=== PATIENT | female | born 1960 | race Caucasian/White ===

== ENCOUNTER → 2016-12-16 | Outpatient (CLI) | payer OTHER ==
--- NOTE | 2016-12-16 15:09 | RAD ---
Right knee with patella, 4 views, 12/16/2016: History: Knee pain, twisting injury There is narrowing of the medial compartment of the knee joint with mild marginal spurring. There is minimal spurring at the patellofemoral articulation. No acute fracture or dislocation is identified. There is mild subcutaneous edema anteriorly. No definite joint effusion is seen. IMPRESSION: 1. Moderate degenerative change. 2. No acute bony abnormality is detected.
== END | disposition home or self-care (01) ==
LOC: DXRADRC 14:36
PROVIDERS: ATTEND Orthopaedic Surgery Sports Medicine
DX: M17.11 Unilateral primary osteoarthritis, right knee (principal)
CPT/HCPCS: 73562

== ENCOUNTER 2019-09-30 16:36 | Emergency (ER) | payer OTHER ==
[~2019-09-30] VITALS: Ht 165.1 cm; Wt 101.3 kg
--- NOTE | 2019-09-30 16:54 | PHYS DOC ---
Adult General Chief Complaint Chief Complaint: COUGH HPI HPI Patient is a 59-year-old female who presents with complaint of chest discomfort and mild cough for the last 2-3 days. Patient states that chest discomfort has been worsened with exertion. She denies any nausea, vomiting or diaphoresis. She states the cough has been productive of scant amount of clear sputum. Patient denies any fever.[] (ESTEBAN PRYOR Jr. DO) HPI Pt. follows with [facility] Hammond. (HALEY TSE MD) Review of Systems Review of Systems Constitutional: Denies fever or chills [] Respiratory: Admits to cough without shortness of breath [] Cardiovascular: No additional information not addressed in HPI [] GI: Denies abdominal pain, nausea, vomiting, bloody stools or diarrhea [] Musculoskeletal: Admits to right sided mid thoracic pain [] Integument: Denies rash or skin lesions [] Neurologic: Denies headache, focal weakness or sensory changes [] All other systems were reviewed and found to be within normal limits, except as documented in this note. (ESTEBAN PRYOR Jr. DO) Physical Exam Physical Exam Constitutional: Well developed, well nourished, no acute distress, non-toxic appearance. [] HENT: Normocephalic, atraumatic, bilateral external ears normal, oropharynx m oist, no oral exudates, nose normal. [] Eyes: PERRLA, EOMI, conjunctiva normal, no discharge. [] Neck: Normal range of motion, no tenderness, supple, no stridor. [] Cardiovascular:Heart rate regular rhythm, no murmur [] Lungs & Thorax: Bilateral breath sounds clear to auscultation [] Abdomen: Bowel sounds normal, soft, no tenderness. [] Skin: Warm, dry, no erythema, no rash. [] Extremities: No tenderness, no cyanosis, no clubbing, ROM intact, no edema. [] Neurologic: Alert and oriented X 3, normal motor function, normal sensory function, no focal deficits noted. [] (ESTEBAN PRYOR Jr. DO) EKG EKG EKG demonstrates normal sinus rhythm with no significant abnormalities.[] (ESTEBAN PRYOR Jr. DO) Radiology/Procedures Radiology/Procedures [] Impressions: PROCEDURE: PORTABLE CHEST 1V INDICATION: Chest pain COMPARISON: None. FINDINGS: Single view of chest obtained. No focal airspace consolidation. Cardiomediastinal contour unremarkable. No acute osseous abnormality. IMPRESSION: * No focal airspace consolidation or edema. Electronically signed by: Kj Shahid MD (09/30/2019 5:06 PM) [id number] (ESTEBAN PRYOR Jr., DO) Radiology/Procedures [address] [address] IMAGING REPORT Signed PATIENT: NI RODASACCOUNT: [id number] : 1960 LOCATION: ER AGE: 59 SEX: F EXAM STATUS: REG ER ORD. PHYSICIAN: ESTEBAN PRYOR Jr., DO REASON: Chest pain PROCEDURE: PORTABLE CHEST 1V INDICATION: Chest pain COMPARISON: None. FINDINGS: Single view of chest obtained. No focal airspace consolidation. Cardiomediastinal contour unremarkable. No acute osseous abnormality. IMPRESSION: * No focal airspace consolidation or edema. Electronically signed by: Kj Shahid MD (09/30/2019 5:06 PM) [id number] DICTATED AND SIGNED BY: KJ SHAHID MD DATE: 09/30/191705 CC: ESTEBAN PRYOR Jr. DO; HUMPHREY HAMMOND [address] [address] IMAGING REPORT Signed PATIENT: NI RODASACCOUNT: [id number] : 1960 LOCATION: ER AGE: 59 SEX: F EXAM STATUS: REG ER ORD. PHYSICIAN: ESTEBAN PRYOR Jr., DO REASON: Chest pain PROCEDURE: PORTABLE CHEST 1V INDICATION: Chest pain COMPARISON: None. FINDINGS: Single view of chest obtained. No focal airspace consolidation. Cardiomediastinal contour unremarkable. No acute osseous abnormality. IMPRESSION: * No focal airspace consolidation or edema. Electronically signed by: Kj Shahid MD (09/30/2019 5:06 PM) [id number] DICTATED AND SIGNED BY: KJ SHAHID MD DATE: 09/30/191705 CC: ESTEBAN PRYOR Jr. DO; HUMPHREY HAMMOND [address] [address] IMAGING REPORT Signed PATIENT: NI RODASACCOUNT: [id number] : 1960 LOCATION: ER AGE: 59 SEX: F EXAM STATUS: REG ER ORD. PHYSICIAN: ESTEBAN PRYOR Jr., DO REASON: Chest pain PROCEDURE: PORTABLE CHEST 1V INDICATION: Chest pain COMPARISON: None. FINDINGS: Single view of chest obtained. No focal airspace consolidation. Cardiomediastinal contour unremarkable. No acute osseous abnormality. IMPRESSION: * No focal airspace consolidation or edema. Electronically signed by: Kj Shahid MD (09/30/2019 5:06 PM) [id number] DICTATED AND SIGNED BY: KJ SHAHID MD DATE: 09/30/191705 CC: ESTEBAN PRYOR Jr. DO; HUMPHREY HAMMOND [address] [address] IMAGING REPORT Signed PATIENT: NI RODASACCOUNT: [id number] : 1960 LOCATION: ER AGE: 59 SEX: F EXAM STATUS: REG ER ORD. PHYSICIAN: ESTEBAN PRYOR Jr., DO REASON: Chest pain PROCEDURE: PORTABLE CHEST 1V INDICATION: Chest pain COMPARISON: None. FINDINGS: Single view of chest obtained. No focal airspace consolidation. Cardiomediastinal contour unremarkable. No acute osseous abnormality. IMPRESSION: * No focal airspace consolidation or edema. Electronically signed by: Kj Shahid MD (09/30/2019 5:06 PM) [id number] DICTATED AND SIGNED BY: KJ SHAHID MD DATE: 09/30/191705 CC: ESTEBAN PRYOR Jr., DO; HUMPHREY HAMMOND [address] [address] IMAGING REPORT Signed PATIENT: NI RODASACCOUNT: [id number] : 1960 LOCATION: ER AGE: 59 SEX: F EXAM STATUS: REG ER ORD. PHYSICIAN: ESTEBAN PRYOR Jr., DO REASON: Chest pain PROCEDURE: PORTABLE CHEST 1V INDICATION: Chest pain COMPARISON: None. FINDINGS: Single view of chest obtained. No focal airspace consolidation. Cardiomediastinal contour unremarkable. No acute osseous abnormality. IMPRESSION: * No focal airspace consolidation or edema. Electronically signed by: Kj Shahid MD (09/30/2019 5:06 PM) [id number] DICTATED AND SIGNED BY: KJ SHAHID MD DATE: 09/30/191705 CC: ESTEBAN PRYOR Jr., DO; HUMPHREY HAMMOND ~ [address] [address] IMAGING REPORT Signed PATIENT: NI RODASACCOUNT: [id number] : 1960 LOCATION: ER AGE: 59 SEX: F EXAM STATUS: REG ER ORD. PHYSICIAN: ESTEBAN PRYOR Jr., DO REASON: Chest pain PROCEDURE: PORTABLE CHEST 1V INDICATION: Chest pain COMPARISON: None. FINDINGS: Single view of chest obtained. No focal airspace consolidation. Cardiomediastinal contour unremarkable. No acute osseous abnormality. IMPRESSION: * No focal airspace consolidation or edema. Electronically signed by: Kj Shahid MD (09/30/2019 5:06 PM) [id number] DICTATED AND SIGNED BY: KJ SHAHID MD DATE: 09/30/191705 CC: ESTEBAN PRYOR Jr., DO; HUMPHREY HAMMOND ~ HALEY PINA MD) Course & Med Decision Making Course & Med Decision Making Pertinent Labs and Imaging studies reviewed. (See chart for details) Patient moved to room upon arrival was evaluated by ER medical staff after which blood work was obtained and IV established. At this time, patient's blood work is pending and [facility] (ESTEBAN PRYOR Jr. DO) Course & Med Decision Making Pt. to follow up at [place]. Patient to take Tylenol and ibuprofen as needed for discomfort or fever. Patient push fluids. Patient uses MDI 2 puffs 4 times a day. May take prednisone 50 mg day for 5 days. Patient to self isolate if fever or felt CVAT high risk categories of CO-19. Follow with CDC updates and guidelines. Impression: 1. Viral syndrome 2. Bronchitis (HALEY TSE MD) Dragon Disclaimer Dragon Disclaimer This electronic medical record was generated, in whole or in part, using a voice recognition dictation system. (ESTEBAN PRYOR Jr., DO) Departure Departure: Impression: Primary Impression: Chest pain Disposition: 01 HOME/RESIDENCE PRIOR TO ADM Condition: STABLE Referrals: HUMPHREY HAMMOND (PCP) Scripts Albuterol Sulfate (VENTOLIN HFA INHALER) 18 Gm Hfa.aer.ad 2 PUFF IH PRN Q4HRS PRN for FOR ASTHMA for 30 Days, INHALER 0 Refills Prov: HALEY TSE MD 09/30/19 Prednisone (PREDNISONE) 50 Mg Tablet 50 MG PO DAILY for re-active airway for 5 Days, #5 TAB Prov: HALEY TSE MD 09/30/19 Dragon Disclaimer This chart was dictated in whole or in part using Voice Recognition software in a busy, high-work load, and often noisy Emergency Department environment. It may contain unintended and wholly unrecognized errors or omissions. (HALEY TSE MD) Problem Qualifiers Primary Impression: Chest pain Chest pain type: unspecified Qualified Codes: R07.9 - Chest pain, unspecified ESTEBAN PRYOR Jr., DO Sep 30, 2019 16:54 HALEY TSE MD Sep 30, 2019 18:02
[2019-09-30] MEDS ORDERED: ASPIRIN 81 MG TAB.CHEW PO ONE (17:00)
--- NOTE | 2019-09-30 17:09 | RAD ---
INDICATION: Chest pain COMPARISON: None. FINDINGS: Single view of chest obtained. No focal airspace consolidation. Cardiomediastinal contour unremarkable. No acute osseous abnormality. IMPRESSION: * No focal airspace consolidation or edema. Electronically signed by: Wilfred Shahid MD (09/30/2019 5:06 PM) [id number]
[2019-09-30 17:37] LABS: BASO % 1 % (0-3); EOS # 0.3 x10^3/uL (0.0-0.7); EOS % 4 % (0-3); HEMOGLOBIN 13.7 g/dL (12.0-15.5); LYMPH # 1.8 x10^3/uL (1.0-4.8); LYMPH % 29 % (24-48); MEAN CORPUSCULAR HEMOGLOBIN 29 pg (25-35); MEAN CORPUSCULAR HGB CONC 33 g/dL (31-37); MEAN CORPUSCULAR VOLUME 88 fL (79-100); MONO # 0.4 x10^3/uL (0.0-1.1); MONO % 6 % (0-9); NEUT # 3.8 x10^3uL (1.8-7.7); NEUT % 60 % (31-73); PLATELET COUNT 231 x10^3/uL (140-400); RED BLOOD COUNT 4.68 x10^6/uL (3.50-5.40); RED CELL DISTRIBUTION WIDTH 13.7 % (11.5-14.5); WHITE BLOOD COUNT 6.3 x10^3/uL (4.0-11.0)
--- NOTE | 2019-09-30 17:38 | EKG ---
[address] [address] Test Date: 2019-09-30 Test Time: 17:31:50 Pat Name: NI RODAS Department: Room: Gender: F Full Stack Python Developer: : 1960 Requested By: ESTEBAN PRYOR Order Number: [id number] Reading MD: Measurements Intervals [place] Rate: 68 P: 36 LA: 152 QRS: 21 QRSD: 84 T: 47 QT: 404 QTc: 434 Interpretive Statements SINUS RHYTHM QRS(T) CONTOUR ABNORMALITY CONSIDER ANTEROLATERAL MYOCARDIAL DAMAGE POSSIBLY ABNORMAL ECG RI6.01 No previous ECG available for comparison
[2019-09-30 17:47] LABS: CALCIUM 9.5 mg/dL (8.5-10.1); CREATININE 0.8 mg/dL (0.6-1.0); GFR 73.2; POTASSIUM 4.3 mmol/L (3.5-5.1)
[2019-09-30 17:49] LABS: BILIRUBIN,URINE NEG (NEG); CLARITY,URINE CLEAR; COLOR,URINE YELLOW; GLUCOSE,URINE NEG (NEG)
[2019-09-30 17:50] LABS: BACTERIA,URINE 0 /HPF (0-FEW); NITRITE,URINE NEG (NEG); RBC,URINE 0 /HPF (0-2); SQUAMOUS EPITHELIAL CELL,UR OCC /LPF; UROBILINOGEN,URINE 0.2 mg/dL (0.2 mg/dL); WBC,URINE OCC /HPF (0-4)
[2019-09-30 17:59] LABS: ALBUMIN 3.6 g/dL (3.4-5.0); ALBUMIN/GLOBULIN RATIO 1.3 (1.0-1.7); MAGNESIUM 2.1 mg/dL (1.8-2.4); TOTAL BILIRUBIN 0.2 mg/dL (0.2-1.0); TOTAL PROTEIN 6.4 g/dL (6.4-8.2)
[2019-09-30 19:12] LABS: INFLUENZA A PATIENT NEGATIVE (NEGATIVE); INFLUENZA B PATIENT NEGATIVE (NEGATIVE)
[2019-09-30] MEDS ORDERED: PRED50TA PO (19:42)
[2019-09-30] MEDS ORDERED: ALBU2.5V8 IH (19:42)
[2019-09-30] MEDS ORDERED: predniSONE 10 MG TABLET PO ONE (19:45)
[2019-09-30] MEDS ORDERED: ALBUTEROL SULFATE 8GM INHALER. INH ONE (19:45)
[2019-09-30 20:00] VITALS: BP 149/91
== END 2019-09-30 20:00 | disposition home or self-care (01) ==
LOC: ER 16:36
DX: R07.89 Other chest pain (principal); M54.6 Pain in thoracic spine
CPT/HCPCS: 36415; 71045; 80053; 81001; 83690; 83735; 83880; 84484; 85025; 85379; 87804; 93005; 94640; 99285; J7512; J7613; 94664

== ENCOUNTER → 2019-12-28 | Outpatient (CLI) | payer OTHER ==
[~2019-12-28] MED LIST: ALBU2.5V8 IH; PRED50TA PO
--- NOTE | 2019-12-28 13:58 | RAD ---
EXAM: Bilateral knees, 3 views. HISTORY: Pain. COMPARISON: 12/16/2016 FINDINGS: 3 views of both knees are obtained. There is mild bilateral medial compartment joint space narrowing with subchondral sclerosis and spurring. There is no fracture, dislocation or subluxation. No joint effusion is seen. There are few small benign bone islands. IMPRESSION: Mild medial compartment predominant osteoarthritis of both knees. Electronically signed by: Vickie Aguillon MD (12/28/2019 1:55 PM) [facility]
== END | disposition home or self-care (01) ==
LOC: DXRAD 12:42
PROVIDERS: ATTEND Physician Assistant
DX: M17.0 Bilateral primary osteoarthritis of knee (principal); M76.9 Unspecified enthesopathy, lower limb, excluding foot
CPT/HCPCS: 73562

== ENCOUNTER 2020-03-02 12:57 | Emergency (ER) | payer OTHER ==
[~2020-03-02] VITALS: Ht 165.1 cm; Wt 99.6 kg
[2020-03-02] MEDS ORDERED: FAMOTIDINE 20 MG/2 ML VIAL IVP ONE (13:30)
[2020-03-02] MEDS ORDERED: ONDANSETRON PF 4 MG/2 ML VIAL. IVP ONE (13:30)
[2020-03-02] MEDS ORDERED: KETOROLAC 15 MG/ML VIAL. IVP ONE (13:30)
[2020-03-02] MEDS ORDERED: IV NORMAL SALINE 1,000ML 1,000 ML IV ONE (13:30)
[2020-03-02] MEDS ORDERED: ACETAMINOPHEN 500 MG TABLET PO ONE (13:30)
--- NOTE | 2020-03-02 13:55 | PHYS DOC ---
Past History Past Medical History: Arthritis Additional Past Medical Histor: fibroids, CA uterus Past Surgical History: Appendectomy, Cholecystectomy, Hysterectomy Alcohol Use: Occasionally General Adult EDM: Chief Complaint: ABDOMINAL PAIN HPI: HPI: Patient is a 59-year-old female presenting with abdominal pain that has persisted for the past 3 days. Earlier today she sought medical care from an urgent care facility. Provider at that facility advised her to go to the ED. Upon arrival to the ED she had a 100.6 fever and states that she has not had a fever during the past 3 days. Patient describes abdominal pain in the left lower quadrant as constant and rates the pain at a 6 out of 10 while lying still. Pain is provoked by movement or standing. Patient denies any changes in bowel movements, nausea, vomiting, blood in stool. Patient's last colonoscopy was at age 49, which she states had no abnormal findings. Patient denies any history of diverticulosis, diverticulitis. Review of Systems: Review of Systems: Constitutional: Denies past subjective fever or chills Eyes: Denies redness or eye pain HENT: Denies nasal congestion or sore throat Respiratory: Denies cough or shortness of breath Cardiovascular: Denies chest pain or palpitations GI: Denies abdominal pain, nausea, or vomiting : Denies dysuria or hematuria Musculoskeletal: Endorses back pain or joint pain Integument: Denies rash or skin lesions Neurologic: Denies headache, focal weakness or sensory changes Complete systems were reviewed and found to be within normal limits, except as documented in this note. Family History: Family History: Mother with history of ovarian cancer. Current Medications: Current Meds: Current Medications Medications (Trade) Dose Ordered Sig/[facility] Start Time Stop Time Status Last Admin Dose Admin Acetaminophen (Tylenol) 500 mg 1X ONCE 03/02/20 13:30 03/02/20 13:31 DC Famotidine (Pepcid Vial) 20 mg 1X ONCE 03/02/20 13:30 03/02/20 13:31 DC Ketorolac Tromethamine (Toradol 15mg Vial) 15 mg 1X ONCE 03/02/20 13:30 03/02/20 13:31 DC Ondansetron HCl (Zofran) 4 mg 1X ONCE 03/02/20 13:30 03/02/20 13:31 DC Sodium Chloride 1,000 ml @ 1,000 mls/hr 1X ONCE 03/02/20 13:30 03/02/20 14:29 Allergies: Allergies: Allergies Coded Allergies Type Severity Reaction Last Updated Verified morphine Allergy Unknown Itching 03/02/20 Yes Physical Exam: PE: Constitutional: Well developed, well nourished, no acute distress, non-toxic appearance, obese HENT: Normocephalic, atraumatic Eyes: PERRL, EOMI, conjunctiva normal, no discharge Neck: Normal range of motion, no tenderness, supple Lungs & Thorax: Equal chest rise bilaterally, no respiratory distress Abdomen: Soft, tenderness to palpation of left lower quadrant, no bruising on flank or umbilical region, no rebound tenderness Skin: Warm, dry, no erythema, no rash Back: No tenderness, no CVA tenderness Extremities: No tenderness, ROM intact, no edema Neurologic: Alert and oriented X 3, normal motor function, normal sensory fu nction, no focal deficits noted Psychologic: Affect normal, judgment normal Current Patient Data: Vital Signs: Vital Signs Date Time Temp Pulse Resp B/P (MAP) Pulse Ox O2 Delivery O2 Flow Rate FiO2 03/02/20 13:05 100.6 88 18 135/83 (100) 100 Room Air Radiology/Procedures: Radiology/Procedures: PROCEDURE: CT ABD PELV W/ IV CONTRST ONLY EXAM: Abdomen and pelvis CT with intravenous contrast. HISTORY: Left lower quadrant pain. Fever. TECHNIQUE: Computed tomographic images of the abdomen and pelvis were obtained following the administration of intravenous contrast. Multiplanar reformatting was performed. *One or more of the following individualized dose reduction techniques were utilized for this examination: 1. Automated exposure control. 2. Adjustment of the mA and/or kV according to patient size. 3. Use of iterative reconstruction technique. COMPARISON: None. FINDINGS: Evaluation of the lower thorax demonstrates no infiltrate or pleural effusion. The heart is normal in size. The liver is upper normal in size or mildly enlarged. No focal hepatic lesion is seen. The gallbladder is surgically absent. The spleen is upper normal in size. There is a fat density lesion within the pancreatic head measuring 1.4 cm. This is likely a benign lipoma. There is a large simple appearing cyst within the left kidney measuring 11.6 cm. There is a tiny cortical cyst within the medial left kidney. No solid renal lesion or hydronephrosis is seen. The appendix is surgically absent. There is distal colonic diverticulosis. There is superimposed segmental wall thickening and surrounding inflammatory stranding and trace fluid at the distal descending colon due to acute diverticulitis. No drainable fluid collection is seen. The bladder is unremarkable. The uterus is absent. The ovaries are unremarkable. The aorta is normal in caliber. There is no lymphadenopathy. There is no suspicious osseous lesion. IMPRESSION: 1. Acute diverticulitis involving the distal descending colon. No drainable fluid collection is seen. 2. 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 3. 11.6 cm simple cyst within the left kidney. There is a tiny medial cortical cyst within the left kidney. Follow-up is not routinely recommended for simple cysts. Electronically signed by: Vickie Aguillon MD (03/02/2020 2:28 PM) [facility] Course & Med Decision Making: Course & Med Decision Making Pertinent Labs and Imaging studies reviewed. (See chart for details) Claire Alfaro is a 59-year-old female presenting with 3-day history of left lower quadrant pain with a 106.6 fever upon arrival. A CBC, BMP, coagulation study, UA with culture, CT of abdomen and pelvis with IV contrast was ordered. Dragon Disclaimer: Dragon Disclaimer: This electronic medical record was generated, in whole or in part, using a voice recognition dictation system. Departure Departure: Impression: Primary Impression: Diverticulitis Disposition: 01 HOME/RESIDENCE PRIOR TO ADM Condition: STABLE Referrals: HUMPHREY JIMENES (PCP) BEVERLY MOORE MD Patient Instructions: Diverticulitis, [id number]-ro-[id number] Scripts Hydrocodone Bit/Acetaminophen (NORCO 5-325 TABLET) 1 Each Tablet 0.5-1 TAB PO Q6HRS PRN for PAIN, #10 TAB Prov: BEREKET MATHEWS DO 03/02/20 Metronidazole (FLAGYL) 500 Mg Tablet 1 TAB PO TID for Diverticulitis, #21 TAB Prov: BEREKET MATHEWS DO 03/02/20 Ciprofloxacin Hcl (CIPRO) 500 Mg Tablet 1 TAB PO BID for Diverticultis, #14 TAB Prov: BEREKET MATHEWS DO 03/02/20 Ondansetron (ONDANSETRON ODT) 4 Mg Tab.rapdis 1 TAB PO PRN Q6-8HRS PRN for NAUSEA, #16 TAB Prov: BEREKET MATHEWS DO 03/02/20 Justification of Admission: Justification of Admission: Justification of Admission Dx: N/A BEREKET MATHEWS DO Mar 02, 2020 13:55
[2020-03-02 13:56] LABS: BASO # 0.1 x10^3/uL (0.0-0.2); BASO % 1 % (0-3); EOS # 0.1 x10^3/uL (0.0-0.7); EOS % 1 % (0-3); HEMOGLOBIN 14.1 g/dL (12.0-15.5); LYMPH # 1.2 x10^3/uL (1.0-4.8); LYMPH % 12 % (24-48); MEAN CORPUSCULAR HEMOGLOBIN 29 pg (25-35); MEAN CORPUSCULAR HGB CONC 33 g/dL (31-37); MEAN CORPUSCULAR VOLUME 89 fL (79-100); MONO # 0.6 x10^3/uL (0.0-1.1); MONO % 6 % (0-9); NEUT # 7.6 x10^3uL (1.8-7.7); NEUT % 80 % (31-73); PLATELET COUNT 193 x10^3/uL (140-400); RED BLOOD COUNT 4.83 x10^6/uL (3.50-5.40); WHITE BLOOD COUNT 9.6 x10^3/uL (4.0-11.0)
[2020-03-02] MEDS ORDERED: IOHEXOL 300 MG/ML 75 ML VIAL. IV ONE ×2 (14:00)
[2020-03-02 14:08] LABS: ANION GAP 7 (6-14); BLOOD UREA NITROGEN 12 mg/dL (7-20); BUN/CREATININE RATIO 13 (6-20); CALCIUM 9.6 mg/dL (8.5-10.1); CARBON DIOXIDE 30 mmol/L (21-32); CHLORIDE 102 mmol/L (98-107); CREATININE 0.9 mg/dL (0.6-1.0); GFR 63.9; GLUCOSE 108 mg/dL (70-99); POTASSIUM 4.5 mmol/L (3.5-5.1); SODIUM 139 mmol/L (136-145)
[2020-03-02 14:23] LABS: ALBUMIN 3.7 g/dL (3.4-5.0); ALK PHOS 60 U/L (46-116); ALT (SGPT) 36 U/L (14-59); AST (SGOT) 20 U/L (15-37); LIPASE 97 U/L (73-393); TOTAL BILIRUBIN 0.6 mg/dL (0.2-1.0); TOTAL PROTEIN 7.4 g/dL (6.4-8.2)
--- NOTE | 2020-03-02 14:30 | RAD ---
EXAM: Abdomen and pelvis CT with intravenous contrast. HISTORY: Left lower quadrant pain. Fever. TECHNIQUE: Computed tomographic images of the abdomen and pelvis were obtained following the administration of intravenous contrast. Multiplanar reformatting was performed. *One or more of the following individualized dose reduction techniques were utilized for this examination: 1. Automated exposure control. 2. Adjustment of the mA and/or kV according to patient size. 3. Use of iterative reconstruction technique. COMPARISON: None. FINDINGS: Evaluation of the lower thorax demonstrates no infiltrate or pleural effusion. The heart is normal in size. The liver is upper normal in size or mildly enlarged. No focal hepatic lesion is seen. The gallbladder is surgically absent. The spleen is upper normal in size. There is a fat density lesion within the pancreatic head measuring 1.4 cm. This is likely a benign lipoma. There is a large simple appearing cyst within the left kidney measuring 11.6 cm. There is a tiny cortical cyst within the medial left kidney. No solid renal lesion or hydronephrosis is seen. The appendix is surgically absent. There is distal colonic diverticulosis. There is superimposed segmental wall thickening and surrounding inflammatory stranding and trace fluid at the distal descending colon due to acute diverticulitis. No drainable fluid collection is seen. The bladder is unremarkable. The uterus is absent. The ovaries are unremarkable. The aorta is normal in caliber. There is no lymphadenopathy. There is no suspicious osseous lesion. IMPRESSION: 1. Acute diverticulitis involving the distal descending colon. No drainable fluid collection is seen. 2. 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 3. 11.6 cm simple cyst within the left kidney. There is a tiny medial cortical cyst within the left kidney. Follow-up is not routinely recommended for simple cysts. Electronically signed by: Vickie Aguillon MD (03/02/2020 2:28 PM) [facility]
[2020-03-02] MEDS ORDERED: CIPROFLOXACIN HCL 500 MG TABLET ONE (15:47)
[2020-03-02] MEDS ORDERED: metroNIDAZOLE 500 MG TABLET ONE (15:47)
[2020-03-02] MEDS ORDERED: METR500T PO (15:50)
[2020-03-02] MEDS ORDERED: ONDA4TAB12 PO (15:50)
[2020-03-02] MEDS ORDERED: HYDR-3165 PO (15:50)
[2020-03-02] MEDS ORDERED: CIPR500T94 PO (15:50)
[2020-03-02] MEDS ORDERED: metroNIDAZOLE 500 MG TABLET PO ONE (16:00)
[2020-03-02] MEDS ORDERED: CIPROFLOXACIN HCL 500 MG TABLET PO ONE (16:00)
[2020-03-02 16:19] VITALS: BP 122/63
== END 2020-03-02 16:19 | disposition home or self-care (01) ==
LOC: ER 12:57
DX: K57.32 Diverticulitis of large intestine without perforation or abscess without bleeding (principal); M19.90 Unspecified osteoarthritis, unspecified site; Z90.49 Acquired absence of other specified parts of digestive tract; Z90.89 Acquired absence of other organs; Z90.710 Acquired absence of both cervix and uterus; Z88.5 Allergy status to narcotic agent
CPT/HCPCS: 36415; 74177; 80053; 82553; 83605; 83690; 85025; 85610; 85730; 96361; 96374; 96375; 99285; J1885; J2405; J3490; J7030; Q9967